=== PATIENT | male | born 1955 | race Caucasian/White ===

== ENCOUNTER 2024-01-05 13:22 | Emergency (ER) | payer SELFPAY ==
[2024-01-05 13:27] VITALS: BP 162/84
--- NOTE | 2024-01-05 13:41 | ED.GENMED ---
History of Present Illness
General
Chief Complaint: Fall
Time Seen by Provider: 01/05/24 13:39
History of Present Illness
History of Present Illness:
Patient is a 68-year-old male with no past medical history presenting to the emergency department after a fall. On triage evaluation here patient was called as a trauma alert. Patient states that he was on the roof of his two-story house when he
was going down the ladder and fell about 7 to 8 feet. He states that he lost his footing. He was not lightheaded or dizzy. He did hit his head. He did not lose consciousness. He is not on a blood thinner. He was ambulatory. No numbness
tingling. He has a mild headache and right sided rib tenderness but otherwise has no complaints
Past History
Past History
ED Past Medical History: None
ED Past Surgical History: None
Social History
Tobacco: Non-smoker
Phy Exam
Physical Exam
Physical Exam:
GENERAL: no acute distress
HEENT: Large superior scalp laceration with bleeding controlled, extraocular muscles intact, no signs of entrapment, dentition intact, no other obvious trauma
NECK: no midline tenderness, cervical collar in place
BACK: no midline tenderness, no other obvious trauma
CHEST: Right lower rib anterior tenderness to palpate, no flail segment, no subcutaneous emphysema, no other obvious trauma
LUNGS: clear to auscultation bilaterally
CARDIOVASCULAR: regular rate and rhythm
ABDOMEN: soft, non-tender, no masses, no other obvious trauma
PELVIS: stable, no obvious injury
EXTREMITIES: moving all extremities, distal pulses intact, no other obvious trauma, small skin tear to bilateral anterior zazueta with no tenderness, right zazueta with 3 cm laceration above the skin tear
NEUROLOGIC: awake, alert x 3, no focal deficits
Course
Orders/Labs/Results
Orders:
Orders
01/05/24 13:39
CT Cervical Spine W/o Iv Contr Urgent
Comment:
Reason For Exam: trauma
CT Chest/abd/pel W Iv Cont Urgent
Reason For Exam: trauma, right rib tenderness
Tetanus/Diphth/Acelpertussis [Adacel] 0.5 ml IM .ONCE ONE
01/05/24 13:40
CT Head W/o Iv Contrast Urgent
Comment:
Reason For Exam: trauma
01/05/24 13:49
Basic Metabolic Panel Urgent
Complete Blood Count/With Diff Urgent
Abnormal Lab Results
01/05/24
13:49
MCH 31.4 H pg
(27.0-31.0)
Abs Immat Gran (auto) 0.4 H 10^3/uL
(0-0.05)
Immature Gran % 3.3 H %
(0-0.5)
BUN 26 H mg/dl
(9-20)
Glucose 127 H mg/dl
(70-99)
01/05/24 13:49
01/05/24 13:49
Vital Signs
Initial and Last Documented VS:
Initial Vital Signs
Temp Pulse Resp BP Pulse Ox
98.8 F 93 18 162/84 98
01/05/24 13:27 01/05/24 13:27 01/05/24 13:27 01/05/24 13:27 01/05/24 13:27
Last Documented Vital Signs
Temp Pulse Resp BP Pulse Ox
98.8 F 80 26 162/84 99
01/05/24 13:27 01/05/24 14:19 01/05/24 14:19 01/05/24 13:27 01/05/24 14:19
Procedures
Laceration Closure
Scalp:
Status of Wound: clean
Size of Wound in cm: 9
Description of Wound Edges: sharp and other (y shaped with central avulsion )
Preparation: cleaned with saline
Wound exploration: explored to base- no FB
Type of Closure: single layer closure
Skin Closure Material: skin julienne
Right Leg:
Status of Wound: clean
Size of Wound in cm: 3
Description of Wound Edges: sharp
Preparation: cleaned with saline
Anesthesia: 1% Lidocaine with epi
Revision/Debridement: routine- no revision
Wound exploration: explored to base- no FB
Type of Closure: single layer closure
Skin Closure Material: other (4-0 ethilon)
Number of sutures: 3
MDM/Problems Addressed
Differential Diagnosis Includes:
Patient is a 68-year-old man presenting to the emergency department after a fall with head laceration and rib tenderness. Vitals are unremarkable and exam does show a large laceration to his scalp with bleeding that is controlled. Exam otherwise
does show some right sided rib tenderness. Differential consist of traumatic intracranial injury such as a bleed versus rib fracture or contusion. Will update patient's tetanus. Will proceed with trauma scans to evaluate for further injuries
given the mechanism. Laceration washed out and repaired as above.
*Critical Care Note
Total Time (30-74mins, 75-104mins- exclusive of procedures): Not Applicable
Update Note
Update Note:
On reevaluation patient resting comfortably. He does note some soreness. I did offer Tylenol however patient declined at this time. CT scan of the head per my interpretation with no acute hemorrhage. CT scan of the neck is consistent with a
nondisplaced oblique fracture of the C2 spinous process. Patient does have a collar in place. He will keep that on until evaluated by PCP/neurosurgery for likely at least 4 to 6-week. Discussed activity modifications. CT scan of chest abdomen
pelvis otherwise unremarkable. All questions answered. Patient stable for discharge at this time. Will give him spine follow-up.
ED Attending Note
-
Portions of this chart may have been created with voice recognition software.� Occasional wrong word or��sound alike� substitutions may have occurred due to the inherent limitations of voice recognition software.
Discharge Plan
Departure
Patient Disposition: Home (Routine Discharge)
Date of Disposition: 01/05/24
Time of Disposition: 15:04
Patient with high blood pressure during this ER visit?: No
Discharge Problem:
Closed fracture of spinous process of cervical vertebra
Instructions: Concussion, Adult (DC), Laceration Repair With Myrtle (DC), Laceration Repair With Stitches (DC)
Referrals:
Jose Huang, DO [Active] -
NONE,* [Family Provider] -
Activity Restrictions/Additional Instructions:
You were seen in the Emergency Department today for a fall. While you were here we performed blood work, which was reassuring. Your CT scan did show a spinous process fracture of your C2. Please keep your collar on until you have been cleared by
your primary care doctor. I did provide you with our spine surgery for follow-up as well.
We would like for you to follow up with your primary care physician for further evaluation. If you experience fever, worsening of your symptoms, or develop any other new or concerning symptoms, please return to the Emergency Department immediately.
Please see the attached sheet for additional information.
You do have 3 stitches and julienne. Please follow-up with your PCP to have the julienne and stitches removed in about 7 to 10 days. Please keep the area clean and dry for the first 24 hours. Afterwards you may wash the area. If you develop any
fevers, chills, redness or drainage from the site please come back to the emergency department. Once the stitches are out please keep the area well moisturzied and place sunscreen over it to prevent scarring.
Interventions
Interventions:
*General Assessment Last Done: 01/05/24 14:19
ED- Fall Risk Assessment Last Done: 01/05/24 14:19
ED-Musculoskeletal Assessment Last Done: 01/05/24 14:19
ED- Neurological Assessment Last Done: 01/05/24 14:19
ED-Skin Assessment Last Done: 01/05/24 14:19
Discharge Date and Time
Print Language: [id number]
[2024-01-05] MEDS: ADACEL 0.5 ML IM (13:50)
[2024-01-05 14:05] LABS: % Basophils 0.7 % (0-2); % Immature Granulocytes 3.3 % (0-0.5); % Lymphocytes 30.4 % (20.5-51.1); % Monocytes 5.6 % (1.7-9.3); Absolute Basophils 0.1 10^3/uL (0-0.2); Absolute Eosinophils 0.4 10^3/uL (0-0.7); Absolute Immature Granulocytes 0.4 10^3/uL (0-0.05); Absolute Lymphocytes 3.3 10^3/uL (1.2-3.4); Absolute Monocytes 0.6 10^3/uL (0.1-0.6); Hematocrit 43.8 % (39.0-52.0); Hemoglobin 14.8 g/dL (13.0-18.0); Mean Corp Hgb Conc. 33.8 g/dL (33.0-37.0); Mean Corpuscular Hgb 31.4 pg (27.0-31.0); Mean Corpuscular Volume 92.8 fL (80.0-94.0); Mean Platelet Volume 8.2 fL (7.4-10.4); Nucleated Red Blood Cells % 0 % (-); Platelet Count 381 10^3/uL (130-400); Red Blood Cell Count 4.72 10^6/uL (4.70-6.10); Red Cell Dist. Width 12.2 % (11.5-14.5); White Blood Cell Count 10.7 10^3/uL (4.8-10.8)
[2024-01-05 14:14] LABS: Blood Urea Nitrogen 26 mg/dl (9-20); Calcium 9.3 mg/dl (8.4-10.2); Carbon Dioxide 25 mmol/L (22-30); Chloride 102 mmol/L (98-107); Glucose 127 mg/dl (70-99); Potassium 4.4 mmol/L (3.5-5.1); Sodium 139 mmol/L (135-145); eGFR > 60.00
[2024-01-05 14:30] VITALS: BP 167/96
[2024-01-05 14:45] VITALS: BP 147/95
[2024-01-05 15:00] VITALS: BP 157/86
[2024-01-05 15:16] VITALS: BP 148/80
== END 2024-01-05 16:26 | disposition home or self-care (01) ==
LOC: EMR 13:22
PROVIDERS: EMERGENCY PHYSICIAN Student in an Organized Health Care Education/Training Program
DX: S12.101A Unspecified nondisplaced fracture of second cervical vertebra, initial encounter for closed fracture (principal); S01.01XA Laceration without foreign body of scalp, initial encounter; S81.811A Laceration without foreign body, right lower leg, initial encounter; W11.XXXA Fall on and from ladder, initial encounter; Z23 Encounter for immunization
CPT/HCPCS: 99285; 12004; 90471; 70450; 71260; 72125; 74177; 80048; 85025; 90715; Q9967

== ENCOUNTER → 2024-01-17 08:18 | Outpatient (REF) | payer OTHER, SELFPAY ==
[2024-01-17 09:30] LABS: % Basophils 1.3 % (0-2); % Eosinophils 6.3 % (0-6); % Immature Granulocytes 0.2 % (0-0.5); % Lymphocytes 25.8 % (20.5-51.1); % Monocytes 7.5 % (1.7-9.3); % Neutrophils 58.9 % (42.2-75.2); Absolute Basophils 0.1 10^3/uL (0-0.2); Absolute Eosinophils 0.4 10^3/uL (0-0.7); Absolute Lymphocytes 1.6 10^3/uL (1.2-3.4); Absolute Monocytes 0.5 10^3/uL (0.1-0.6); Absolute Neutrophils 3.6 10^3/uL (1.4-6.5); Hematocrit 40.8 % (39.0-52.0); Mean Corp Hgb Conc. 34.3 g/dL (33.0-37.0); Mean Corpuscular Volume 93.2 fL (80.0-94.0); Mean Platelet Volume 7.9 fL (7.4-10.4); Nucleated Red Blood Cells % 0 % (-); Platelet Count 551 10^3/uL (130-400); Red Blood Cell Count 4.38 10^6/uL (4.70-6.10); Red Cell Dist. Width 11.7 % (11.5-14.5)
[2024-01-17 09:33] LABS: Urine Albumin Negative (Neg - Trace); Urine Bilirubin Negative (Negative); Urine Character Clear (Clear); Urine Color Yellow; Urine Glucose Negative (Negative); Urine Ketone Negative (Negative); Urine Leukocyte Negative (Negative); Urine Nitrite Negative (Negative); Urine Occult Blood Negative (Negative); Urine Specific Gravity 1.015 (<1.030); Urine Urobilinogen Negative (Neg - 1+)
[2024-01-17 09:55] LABS: ALT (SGPT) 23 U/L (0-50); AST (SGOT) 23 U/L (17-59); Albumin 4.1 g/dl (3.5-5.0); Alkaline Phosphatase 129 U/L (38-126); Blood Urea Nitrogen 20 mg/dl (9-20); Carbon Dioxide 26 mmol/L (22-30); Chloride 100 mmol/L (98-107); Glucose 110 mg/dl (70-99); HDL Cholesterol 54 mg/dl; LDL Cholesterol, Calculated 64 mg/dl; Potassium 4.3 mmol/L (3.5-5.1); Sodium 139 mmol/L (135-145); Total Bilirubin 0.6 mg/dl (0.2-1.3); Total Cholesterol 131 mg/dl (50-199); Total Protein 7.6 g/dl (6.3-8.2); Triglyceride 66 mg/dl (10-149); Very Low Density Lipoprotein 13 mg/dl (0-30); eGFR > 60.00
[2024-01-17 10:33] LABS: PSA, Total - Screen 3.58 ng/ml (0.0-4.0); TSH Reflex To Free T4 2.37 uIU/ml (0.47-4.68)
[2024-01-17 10:48] LABS: Hepatitis C Antibody Negative (Negative)
[2024-01-17 11:35] LABS: Urine Red Blood Cell 0-2 /HPF (0-2); Urine Squamous Cell 0-2 /LPF (Few); Urine White Cell 0-2 /HPF (0-5)
[2024-01-17 11:46] LABS: Glycohemoglobin (HgbA1c) 5.3 % (4.0-5.6)
== END ==
LOC: HWLAB 08:18
PROVIDERS: ATTENDING PHYSICIAN Family Medicine
DX: Z11.59 Encounter for screening for other viral diseases (principal); R03.0 Elevated blood-pressure reading, without diagnosis of hypertension; Z12.5 Encounter for screening for malignant neoplasm of prostate
CPT/HCPCS: 36415; 80053; 80061; 81003; 81015; 83036; 84443; 85025; 86803; G0103